=== PATIENT | male | born 1995 | race African-American/Black ===

== ENCOUNTER 2018-07-28 20:42 | Emergency (ER) | payer SELFPAY ==
[~2018-07-28] VITALS: Ht 190.5 cm; Wt 74.4 kg
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
[2018-07-28 21:04] VITALS: BP 141/91
[2018-07-28] MEDS ORDERED: CYCL-331 PO (21:24)
[2018-07-28] MEDS ORDERED: HYDR-1179 PO (21:24)
[2018-07-28] MEDS ORDERED: ORPHENADRINE CITRATE 60 MG/2 ML VIAL. IM ONE (21:30)
[2018-07-28] MEDS ORDERED: KETOROLAC 60 MG/2 ML VIAL. IM ONE (21:30)
[2018-07-28 22:04] LABS: AMPHETAMINE/METHAMPHETAMINE NEG (NEG); BARBITURATES NEG (NEG); BENZODIAZEPINES NEG (NEG); CANNABINOIDS POS (NEG); COCAINE NEG (NEG); METHADONE POS (NEG); OPIATES NEG (NEG); PHENCYCLIDINE NEG (NEG)
[2018-07-28 22:07] LABS: CLARITY,URINE CLEAR; COLOR,URINE YELLOW
[2018-07-28 22:08] LABS: BACTERIA,URINE 0 /HPF (0-FEW); BILIRUBIN,URINE NEG (NEG); GLUCOSE,URINE NEG (NEG); NITRITE,URINE NEG (NEG); RBC,URINE 0 /HPF (0-2); UROBILINOGEN,URINE 0.2 mg/dL (0.2 mg/dL)
== END 2018-07-28 22:32 | disposition home or self-care (01) ==
LOC: ER 20:42
DX: S33.5XXA Sprain of ligaments of lumbar spine, initial encounter (principal); S33.8XXA Sprain of other parts of lumbar spine and pelvis, initial encounter; Z88.0 Allergy status to penicillin; F12.90 Cannabis use, unspecified, uncomplicated; Z72.0 Tobacco use; V43.53XA Car driver injured in collision with pick-up truck in traffic accident, initial encounter; Y93.I9 Activity, other involving external motion; Y92.488 Other paved roadways as the place of occurrence of the external cause; Y99.8 Other external cause status
CPT/HCPCS: 36415; 80307; 81001; 96372; 99283; J1885; J2360